=== PATIENT | female | born 1975 | race Two or more races ===

== ENCOUNTER 2017-03-08 09:40 | Inpatient (IN) | payer OTHER ==
[~2017-03-08] VITALS: Ht 149.9 cm; Wt 69.4 kg
[2017-03-08] MEDS ORDERED: IV NS 0.9% 1,000 ML BAG IV ONE (10:00)
[2017-03-08] MEDS ORDERED: MORPHINE SULFATE INJ 2 MG/ML DISP.SYRIN IV ONE (10:00)
[2017-03-08] MEDS ORDERED: ONDANSETRON HCL/PF 4 MG/2 ML VIAL IVP ONE (10:00)
[2017-03-08] MEDS ORDERED: ONDANSETRON HCL/PF 4 MG/2 ML VIAL ONE (10:03)
[2017-03-08] MEDS ORDERED: MORPHINE SULFATE INJ 4 MG/ML DISP.SYRIN ONE ×2 (10:04→11:39)
[2017-03-08 10:09] LABS: BASOPHILS % (AUTO) 0.3 % (0.0-2.0); EOSINOPHILS % (AUTO) 0.5 % (0.0-6.0); HEMATOCRIT 38 % (33-45); HEMOGLOBIN 11.7 g/dL (11.5-14.8); LYMPHOCYTES # (AUTO) 2.1 /CMM (0.8-4.8); LYMPHOCYTES % (AUTO) 27.7 % (20.0-44.0); MEAN CORPUSCULAR HEMOGLOBIN 23 PG (26.0-33.0); MEAN CORPUSCULAR HGB CONC 31 g/dl (31.0-36.0); MEAN CORPUSCULAR VOLUME 74 fL (82-100); MONOCYTES # (AUTO) 0.3 /CMM (0.1-1.30); MONOCYTES % (AUTO) 4.6 % (2.0-12.0); NEUTROPHILS # (AUTO) 5.1 /CMM (1.8-8.9); NEUTROPHILS % (AUTO) 66.9 % (43.0-81.0); PLATELET COUNT (AUTO) 276 /CMM (150-450); RED BLOOD CELL COUNT(AUTO) 5.11 MIL/uL (4.0-5.2); WHITE BLOOD COUNT (AUTO) 7.4 K/uL (4.3-11.0)
[2017-03-08 10:17] LABS: CALCIUM, SERUM 7.7 mg/dL (8.5-10.1); CREATININE 0.8 mg/dL (0.6-1.3); POTASSIUM 3.8 mmol/L (3.5-5.1)
[2017-03-08] MEDS ORDERED: MORPHINE SULFATE INJ 4 MG/ML DISP.SYRIN IV ONE (12:00)
[2017-03-08] MEDS ORDERED: NAPROXEN 250 MG TABLET PO ONE (13:00)
[2017-03-08] MEDS ORDERED: oxyCODONE/APAP (5/325 MG) 1 UDTAB TABLET PO ONE (13:00)
[2017-03-08] MEDS ORDERED: NAPROXEN 250 MG TABLET ONE (13:17)
[2017-03-08] MEDS ORDERED: oxyCODONE/APAP (5/325 MG) 1 UDTAB TABLET ONE (13:17)
[2017-03-08 14:50] LABS: BILIRUBIN,URINE Negative (NEGATIVE); BLOOD, URINE Negative Ery/uL (NEGATIVE); COLOR,URINE Yellow (YELLOW); KETONES,URINE Negative (NEGATIVE); LEUKOCYTE ESTERASE ,URINE Negative (NEGATIVE); NITRITE, URINE Negative (NEGATIVE); PH,URINE 5.5 (5.0-8.0); PROTEIN,URINE Negative (NEGATIVE); UGLUCOSE Negative (NEGATIVE); UROBILINOGEN,URINE 0.2 EU/dL (0.2)
[2017-03-08] MEDS ORDERED: IBUP-1619 PO (14:51)
[2017-03-08] MEDS ORDERED: CYCL-343 PO (14:51)
[2017-03-08 14:52] LABS: APPEARANCE,URINE Clear (CLEAR)
[2017-03-08 15:00] VITALS: BP 131/71
[2017-03-08 15:02] VITALS: BP 131/71
[2017-03-08] MEDS ORDERED: ACETAMINOPHEN 325 MG TABLET PO PRN (15:30)
[2017-03-08] MEDS ORDERED: ONDANSETRON HCL/PF 4 MG/2 ML VIAL IV PRN (15:30)
[2017-03-08] MEDS ORDERED: oxyCODONE/APAP (5/325 MG) 1 UDTAB TABLET PO PRN ×2 (15:30)
[2017-03-08 16:00] VITALS: BP 134/78
[2017-03-08] MEDS: HYDROMORPHONE 1 MG/1 ML DISP.SYRIN IV PRN ×2 (16:53→17:25)
[2017-03-08] MEDS ORDERED: LIDOCAINE 5% (PATCH) 1 EA PATCH TP SCH (17:00)
[2017-03-08 20:00] VITALS: BP 109/65
[2017-03-08] MEDS: CARISOPRODOL 350 MG TABLET PO SCH (21:07)
[2017-03-09 07:21] LABS: BASOPHILS % (AUTO) 0.2 % (0.0-2.0); EOSINOPHILS # (AUTO) 0.1 /CMM (0.0-0.7); EOSINOPHILS % (AUTO) 0.7 % (0.0-6.0); HEMATOCRIT 35 % (33-45); HEMOGLOBIN 11.3 g/dL (11.5-14.8); LYMPHOCYTES # (AUTO) 3.1 /CMM (0.8-4.8); LYMPHOCYTES % (AUTO) 31.9 % (20.0-44.0); MEAN CORPUSCULAR HEMOGLOBIN 24 PG (26.0-33.0); MEAN CORPUSCULAR HGB CONC 32 g/dl (31.0-36.0); MEAN CORPUSCULAR VOLUME 74 fL (82-100); MONOCYTES # (AUTO) 0.6 /CMM (0.1-1.30); NEUTROPHILS # (AUTO) 5.9 /CMM (1.8-8.9); NEUTROPHILS % (AUTO) 61.2 % (43.0-81.0); PLATELET COUNT (AUTO) 229 /CMM (150-450); RDW COEFFICIENT OF VARIATION 14.4 (11.5-15.0); RED BLOOD CELL COUNT(AUTO) 4.73 MIL/uL (4.0-5.2); WHITE BLOOD COUNT (AUTO) 9.7 K/uL (4.3-11.0)
[2017-03-09 07:49] LABS: ALBUMIN 2.9 g/dL (3.4-5.0); BILIRUBIN,TOTAL 0.2 mg/dL (0.2-1.0); CALCIUM, SERUM 7.8 mg/dL (8.5-10.1); CREATININE 0.8 mg/dL (0.6-1.3); POTASSIUM 3.7 mmol/L (3.5-5.1); TOTAL PROTEIN, SERUM 6.1 g/dL (6.4-8.2)
[2017-03-09 08:00] VITALS: BP 103/65
[2017-03-09] MEDS: CARISOPRODOL 350 MG TABLET PO SCH ×2 (09:00→13:53)
[2017-03-09] MEDS ORDERED: OXYC1TAB8 PO (14:33)
== END 2017-03-09 12:50 | disposition home or self-care (01) | DRG 351 ==
LOC: ER 09:43 → MED 14:27
PROVIDERS: ADMIT Internal Medicine; ATTEND Internal Medicine
DX: S39.012A Strain of muscle, fascia and tendon of lower back, initial encounter (principal); M54.5 Low back pain; X58.XXXA Exposure to other specified factors, initial encounter; Y93.9 Activity, unspecified; Y92.009 Unspecified place in unspecified non-institutional (private) residence as the place of occurrence of the external cause
CPT/HCPCS: 36415; 72148-TC; 80048-TC; 80053-TC; 81000-TC; 85025-TC; 97001-TC; A4606; J1170; J2270; J2405; J7030; Z7610

== ENCOUNTER 2017-11-24 13:27 | Emergency (ER) | payer OTHER ==
[~2017-11-24] VITALS: Ht 152.4 cm; Wt 53.5 kg
[~2017-11-24 13:27] MED LIST: IBUP-2269 PO; OXYC1TAB8 PO
[2017-11-24] MEDS ORDERED: ACETAMINOPHEN 650 MG/20.3 ML UDC PO ONE (15:00)
[2017-11-24] MEDS ORDERED: IBUPROFEN 600 MG TABLET PO ONE ×2 (15:00→15:40)
[2017-11-24] MEDS ORDERED: ACETAMINOPHEN ES 500 MG TABLET ONE (15:40)
[2017-11-24 16:13] VITALS: BP 116/79
== END 2017-11-24 16:14 | disposition home or self-care (01) ==
LOC: ER 13:29
DX: S39.012A Strain of muscle, fascia and tendon of lower back, initial encounter (principal); S70.00XA Contusion of unspecified hip, initial encounter; Z85.41 Personal history of malignant neoplasm of cervix uteri; W01.0XXA Fall on same level from slipping, tripping and stumbling without subsequent striking against object, initial encounter; Y93.89 Activity, other specified; Y92.89 Other specified places as the place of occurrence of the external cause; Y99.8 Other external cause status
CPT/HCPCS: 73502; A4606; Z7610

== ENCOUNTER 2022-10-22 13:21 | Emergency (ER) | payer OTHER ==
[~2022-10-22] VITALS: Ht 149.9 cm; Wt 59.0 kg
[~2022-10-22 13:21] MED LIST changes: -IBUP-2269 PO; +IBUP-2715 PO
[2022-10-22] MEDS ORDERED: IV NS 0.9% 1,000 ML IV ONE (15:00)
[2022-10-22] MEDS ORDERED: PROCHLORPERAZINE EDISYLATE 10 MG/2 ML VIAL IVP ONE (15:00)
[2022-10-22] MEDS ORDERED: diphenhydrAMINE HCL 50 MG/ML VIAL IV ONE (15:00)
--- NOTE | 2022-10-22 15:05 | NUR ---
HEADACHE, DIZZINESS ON/OFF X 1 MONTH. TRIGGERED BY MOLDS INSIDE HOUSE
--- NOTE | 2022-10-22 15:07 | NUR ---
URINE COLLECTED AND SENT OT LAB
--- NOTE | 2022-10-22 15:07 | NUR ---
BLOOD SAMPLE COLLECTED AND SENT TO LAB VIA IV LEFT HAND 20G PATENT AND INTACT
--- NOTE | 2022-10-22 15:09 | NUR ---
DR VENTURA AT BEDSIDE
[2022-10-22] MEDS ORDERED: PROCHLORPERAZINE EDISYLATE 10 MG/2 ML VIAL ONE (15:11)
[2022-10-22] MEDS ORDERED: diphenhydrAMINE HCL 50 MG/ML VIAL ONE (15:11)
[2022-10-22 15:25] LABS: BASOPHILS % (AUTO) 0.2 % (0.0-2.0); EOSINOPHILS % (AUTO) 0.3 % (0.0-6.0); HEMATOCRIT 39 % (33-45); HEMOGLOBIN 12.1 g/dL (11.5-14.8); LYMPHOCYTES # (AUTO) 2.4 K/uL (0.8-4.8); LYMPHOCYTES % (AUTO) 27.7 % (20.0-44.0); MEAN CORPUSCULAR HGB CONC 31 g/dl (31.0-36.0); MEAN CORPUSCULAR VOLUME 73 fL (82-100); MONOCYTES # (AUTO) 0.5 K/uL (0.1-1.30); MONOCYTES % (AUTO) 6.3 % (2.0-12.0); NEUTROPHILS # (AUTO) 5.6 K/uL (1.8-8.9); NEUTROPHILS % (AUTO) 65.5 % (43.0-81.0); PLATELET COUNT (AUTO) 277 K/uL (150-450); RED BLOOD CELL COUNT(AUTO) 5.32 MIL/uL (4.0-5.2); WHITE BLOOD COUNT (AUTO) 8.5 K/uL (4.3-11.0)
[2022-10-22 16:01] LABS: CARBON DIOXIDE 23 mmol/L (21-32); CHLORIDE 107 mmol/L (98-107); CREATININE 0.7 mg/dL (0.6-1.3); GLUCOSE 128 mg/dL (74-106); POTASSIUM 3.7 mmol/L (3.5-5.1); SODIUM SERUM 141 mmol/L (136-145); UREA NITROGEN, BLOOD 9 mg/dL (7-18)
[2022-10-22 16:08] LABS: BILIRUBIN,URINE NEGATIVE (NEGATIVE); COLOR,URINE YELLOW (YELLOW); LEUKOCYTE ESTERASE ,URINE 2+ (NEGATIVE); NITRITE, URINE NEGATIVE (NEGATIVE); PROTEIN,URINE NEGATIVE (NEGATIVE); UGLUCOSE NEGATIVE (NEGATIVE); UROBILINOGEN,URINE 0.2 EU/dL (0.2)
[2022-10-22 16:20] LABS: ALBUMIN 3.8 g/dL (3.4-5.0); ALKALINE PHOSPHATASE 69 U/L (46-116); ASPARTATE AMINOTRANSFERASE 20 U/L (15-37); BILIRUBIN,DIRECT 0.1 mg/dL (0.0-0.2); BILIRUBIN,TOTAL 0.2 mg/dL (0.2-1.0); TOTAL PROTEIN, SERUM 7.8 g/dL (6.4-8.2)
[2022-10-22 16:48] LABS: ALANINE AMINOTRANSFERASE 26 U/L (12-78)
[2022-10-22 17:14] LABS: BACTERIA,URINE 2+ /HPF (None Seen); RBC,URINE 0-2 /HPF (0-2); WBC,URINE 21-50 /HPF (0-3)
[2022-10-22 17:15] LABS: MUCUS,URINE Few /LPF (None Seen)
[2022-10-22] MEDS ORDERED: CEPH500C2 PO (17:17)
[2022-10-22 17:23] LABS: LYMPHOCYTES % (MANUAL) 27 % (16-48); MONOCYTES % (MANUAL) 10 % (0-11.0); NEUTROPHILS % (MANUAL) 63 (42-76)
[2022-10-22 17:39] VITALS: BP 125/82
--- NOTE | 2022-10-22 17:40 | NUR ---
Patient discharged to home in stable condition. Written and verbal after care instructions given. Patient verbalizes understanding of instruction.
--- NOTE | 2022-10-22 17:40 | NUR ---
IV removed. Catheter intact and site benign. Pressure and 4x4 applied to site. No bleeding noted.
== END 2022-10-22 17:39 | disposition home or self-care (01) ==
LOC: ER 13:29
DX: N39.0 Urinary tract infection, site not specified (principal); R51.9 Headache, unspecified; R42 Dizziness and giddiness; Z79.899 Other long term (current) drug therapy
CPT/HCPCS: 99285; 96374; 70450; 71045; 96361; 96375; 93005; 85025; 80048; 87086; 80076; 81001; 36415; 84484; 84702; 85007; J0780; J1200; J7030